=== PATIENT | female | born 1955 | race Two or more races ===

== ENCOUNTER 2018-05-17 16:33 | Emergency (ER) | payer MEDICAID ==
[~2018-05-17] VITALS: Ht 152.4 cm; Wt 55.0 kg
[2018-05-17 16:51] VITALS: BP 117/66
== END 2018-05-17 22:25 | disposition left against medical advice (07) ==
LOC: ER 16:33
DX: R68.89 Other general symptoms and signs (principal); Z53.21 Procedure and treatment not carried out due to patient leaving prior to being seen by health care provider